=== PATIENT | male | born 1945 | race Caucasian/White ===

== ENCOUNTER 2017-12-21 08:23 | Day surgery (SDC) | payer MEDICARE ==
[~2017-12-21] VITALS: Ht 172.7 cm; Wt 87.3 kg
[~2017-12-21 08:23] MED LIST: CHOL500050 PO; CLOP75TA14 PO; CYAN-35 PO; FLAX1000 PO; LORA1TAB3 PO; PANT40TA25 PO; SODIUM CHLORIDE 0.9% 1000ML 1,000 ML IV ONE; VALS1TAB4 PO
[2017-12-21 08:32] VITALS: BP 202/88
[2017-12-21] MEDS ORDERED: EPLE25TA10 PO (09:12)
[2017-12-21] MEDS ORDERED: NEBI10TA PO (09:12)
[2017-12-21] MEDS ORDERED: FOLI1TAB15 PO (09:12)
[2017-12-21] MEDS ORDERED: VALS1TAB6 PO (09:13)
[2017-12-21 11:05] VITALS: BP 138/65
== END 2017-12-21 11:35 | disposition home or self-care (01) ==
LOC: ENDO 08:23 → DAH 08:23 → ENDO 11:35
PROVIDERS: ATTEND Internal Medicine Gastroenterology
DX: Z12.11 Encounter for screening for malignant neoplasm of colon (principal); I10 Essential (primary) hypertension; G47.33 Obstructive sleep apnea (adult) (pediatric); Z79.899 Other long term (current) drug therapy; Z79.01 Long term (current) use of anticoagulants; Z98.890 Other specified postprocedural states; Z88.8 Allergy status to other drugs, medicaments and biological substances
CPT/HCPCS: 93005; A4606; G0121; J7030